=== PATIENT | male | born 1990 | race American Indian/Alaskan Native ===

== ENCOUNTER 2018-12-31 16:49 | Emergency (ER) | payer OTHER ==
[2018-12-31 17:17] VITALS: BP 134/78
--- NOTE | 2018-12-31 17:23 | Emergency Department Report ---
Blank Doc - Documentation Documentation: This is a 28-year-old male that presents with sore throat. This initial assessment/diagnostic orders/clinical plan/treatment(s) is/are subject to change based on patient's health status, clinical progression and re- assessment by fellow clinical providers in the ED. Further treatment and workup at subsequent clinical providers discretion. Patient/guardians urged not to elope from the ED as their condition may be serious if not clinically assessed and managed. Initial orders include: 1- Patient sent to [facility] for further evaluation and treatment 2- strep swab
[2018-12-31] MEDS ORDERED: TYLENOL ONE (19:24)
[2018-12-31] MEDS ORDERED: LIDOCAINE VISCOUS 2% PO ONE (19:24)
[2018-12-31] MEDS ORDERED: TYLENOL PO ONE (19:24)
[2018-12-31] MEDS ORDERED: LIDOCAINE VISCOUS 2% ONE (19:24)
[2018-12-31] MEDS ORDERED: BICILLIN L-A IM ONE (20:06)
[2018-12-31] MEDS ORDERED: DELTASONE PO ONE (20:07)
[2018-12-31] MEDS ORDERED: TORADOL IM ONE (20:07)
--- NOTE | 2018-12-31 20:15 | Emergency Department Report ---
ED ENT HPI - General Chief complaint: Sore Throat Stated complaint: STREP THROAT Time Seen by Provider: 12/31/18 17:21 Source: patient Mode of arrival: Ambulatory Limitations: No Limitations - History of Present Illness Initial comments: Patient is a 28-year-old -[place]ish male with history of recurrent streptococcal pharyngitis presents to the ED with complaint of acute onset persistent severe sore throat with discharge her for the last 2 days. Patient states that swallowing anything makes the pain worse. Patient also complains of persistent drooling since the onset of the symptoms. Patient denies fever, chills, nausea, vomiting, diarrhea, abdominal pain, nasal and sinus congestion, cough, or shortness of breath. Patient states that no one else at home has had similar symptoms. MD complaint: sore throat, difficulty swallowing -: Sudden, days(s) (2) Location: throat Severity: severe Severity scale (0 -10): 7 Quality: burning, aching, sharp Consistency: constant Improves with: none Worsens with: swallowing, eating Associated Symptoms: pain with swallowing, sore throat. denies: fever, cough, gum swelling, toothache, rhinorrhea - Related Data Previous Rx's Medication Instructions Recorded Last Taken Type Ibuprofen [Motrin] 600 mg PO Q8H PRN #20 tablet 12/31/18 Unknown Rx Lidocaine Viscous 2% 10 ml MM Q4H PRN #120 ml 12/31/18 Unknown Rx Ondansetron [Zofran Odt] 4 mg PO Q8HR #15 tab.rapdis 12/31/18 Unknown Rx methylPREDNISolone [Medrol] 4 mg PO DAILY #21 tab.ds.pk 12/31/18 Unknown Rx Allergies Allergy/AdvReac Type Severity Reaction Status Date / Time No Known Allergies Allergy Unverified 12/31/18 17:17 ED Dental HPI - General Chief complaint: Sore Throat Stated complaint: STREP THROAT Time Seen by Provider: 12/31/18 17:21 Source: patient Mode of arrival: Ambulatory Limitations: No Limitations - History of Present Illness Initial comments: Patient is a 28-year-old -Swedish male with history of recurrent streptococcal pharyngitis presents to the ED with complaint of acute onset persistent severe sore throat with discharge her for the last 2 days. Patient states that swallowing anything makes the pain worse. Patient also complains of persistent drooling since the onset of the symptoms. Patient denies fever, chills, nausea, vomiting, diarrhea, abdominal pain, nasal and sinus congestion, cough, or shortness of breath. Patient states that no one else at home has had similar symptoms. MD complaint: sore throat, difficulty swallowing -: Sudden, days(s) (2) 1 - Erythematous tonsils with gross drooling; no peritonsillar swelling and trismus Severity: severe Quality: burning, aching, sharp Consistency: constant Improves with: none Worsens with: swallowing, eating Dental Associated Symptons: Yes: Sore Throat - Related Data Previous Rx's Medication Instructions Recorded Last Taken Type Ibuprofen [Motrin] 600 mg PO Q8H PRN #20 tablet 12/31/18 Unknown Rx Lidocaine Viscous 2% 10 ml MM Q4H PRN #120 ml 12/31/18 Unknown Rx Ondansetron [Zofran Odt] 4 mg PO Q8HR #15 tab.rapdis 12/31/18 Unknown Rx methylPREDNISolone [Medrol] 4 mg PO DAILY #21 tab.ds.pk 12/31/18 Unknown Rx Allergies Allergy/AdvReac Type Severity Reaction Status Date / Time No Known Allergies Allergy Unverified 12/31/18 17:17 ED Review of Systems ROS: Stated complaint: STREP THROAT Other details as noted in HPI Comment: All other systems reviewed and negative Constitutional: no symptoms reported, see HPI. denies: chills, diaphoresis, fever, malaise, weakness Eyes: as per HPI. denies: eye pain, vision change ENT: as per HPI, throat pain, congestion. denies: ear pain, dental pain, hearing loss, epistaxis Respiratory: no symptoms reported, see HPI. denies: cough, shortness of breath, SOB with exertion, SOB at rest, wheezing Cardiovascular: as per HPI. denies: chest pain, palpitations, dyspnea on exertion, edema, paroxysmal nocturnal dyspnea Endocrine: no symptoms reported, see HPI. denies: excessive sweating, flushing, intolerance to cold, intolerance to heat, increased thirst, increased urine, unexplained weight gain Gastrointestinal: as per HPI. denies: abdominal pain, nausea, vomiting, constipation, hematemesis Genitourinary: as per HPI. denies: urgency, dysuria, hematuria, discharge Musculoskeletal: as per HPI. denies: back pain, joint swelling, arthralgia Skin: as per HPI. denies: rash, change in color, change in hair/nails Neurological: as per HPI. denies: headache, paresthesias, abnormal gait, vertigo Psychiatric: as per HPI. denies: anxiety, auditory hallucinations, visual hallucinations Hematological/Lymphatic: as per HPI ED Past Medical Hx - Social History Smoking Status: Current Every Day Smoker Substance Use Type: None - Medications Home Medications: Home Medications Medication Instructions Recorded Confirmed Last Taken Type Ibuprofen [Motrin] 600 mg PO Q8H PRN #20 tablet 12/31/18 Unknown Rx Lidocaine Viscous 2% 10 ml MM Q4H PRN #120 ml 12/31/18 Unknown Rx Ondansetron [Zofran Odt] 4 mg PO Q8HR #15 tab.rapdis 12/31/18 Unknown Rx methylPREDNISolone [Medrol] 4 mg PO DAILY #21 tab.ds.pk 12/31/18 Unknown Rx ED Physical Exam - General Limitations: No Limitations General appearance: alert, in no apparent distress - Head Head exam: Present: atraumatic, normocephalic, normal inspection - Eye Eye exam: Present: normal appearance, PERRL, EOMI Pupils: Present: normal accommodation - ENT ENT exam: Present: mucous membranes moist, TM's normal bilaterally, normal external ear exam, other (Erythematous tonsils with drooling, no sign of peritonsillar abscess, no trismus) - Neck Neck exam: Present: normal inspection, lymphadenopathy. Absent: tenderness, full ROM - Respiratory Respiratory exam: Present: normal lung sounds bilaterally. Absent: respiratory distress, wheezes, rales, rhonchi, chest wall tenderness, accessory muscle use, decreased breath sounds, prolonged expiratory - Cardiovascular Cardiovascular Exam: Present: regular rate, normal rhythm, normal heart sounds. Absent: bradycardia, tachycardia - GI/Abdominal GI/Abdominal exam: Present: soft. Absent: distended, tenderness, guarding, rebound, hyperactive bowel sounds, hypoactive bowel sounds, organomegaly - Rectal Rectal exam: Present: deferred - Extremities Exam Extremities exam: Present: normal inspection. Absent: full ROM, tenderness - Back Exam Back exam: Present: normal inspection, full ROM. Absent: tenderness, CVA tenderness (R), CVA tenderness (L), muscle spasm, paraspinal tenderness, vertebral tenderness - Neurological Exam Neurological exam: Present: alert, oriented X3, CN II-XII intact, normal gait, reflexes normal - Psychiatric Psychiatric exam: Present: normal affect - Skin Skin exam: Present: warm, dry, intact ED Course Vital Signs 12/31/18 17:16 Temperature 98.8 F Pulse Rate 97 H Respiratory 22 Rate Blood Pressure 134/78 O2 Sat by Pulse 98 Oximetry ED Medical Decision Making - Medical Decision Making Patient is alert and oriented 3 and is not in distress with normal vital signs. Patient was treated for pain in the ED and also received Bicillin LA 1.2 million units intramuscular injection. On reevaluation, patient and is moderately controlled, and the patient will discharged home on pain medications and steroid Dosepak, and advised to follow up with his primary care physician in 5-7 days for reevaluation. Patient also advised to return to the ED immediately if symptoms get worse. - Differential Diagnosis acute strep pharyngitis, acute bronchitis Critical care attestation.: If time is entered above; I have spent that time in minutes in the direct care of this critically ill patient, excluding procedure time. ED Disposition Clinical Impression: Acute pharyngitis Qualifiers: Pharyngitis/tonsillitis etiology: other specified organisms Qualified Code(s): J02.8 - Acute pharyngitis due to other specified organisms Disposition: DC-01 TO HOME OR SELFCARE Is pt being admited?: No Does the pt Need Aspirin: No Condition: Stable Instructions: Strep Throat (ED), Pharyngitis (ED) Additional Instructions: Take medications with food, drink plenty of fluids and follow up with your [facility] physician at sunrise in 5-7 days. Return to the ED immediately if symptoms get worse. Prescriptions: Lidocaine Viscous 2% 10 ml MM Q4H PRN #120 ml PRN Reason: Pain , Severe (7-10) methylPREDNISolone [Medrol] 4 mg PO DAILY #21 tab.ds.pk Ibuprofen [Motrin] 600 mg PO Q8H PRN #20 tablet PRN Reason: Pain Ondansetron [Zofran Odt] 4 mg PO Q8HR #15 tab.rapdis Referrals: [facility] [Outside] - 3-5 Days Forms: Work/School Release Form(ED) Time of Disposition: 20:30 Print Language: [place]
== END 2018-12-31 20:50 | disposition home or self-care (01) ==
LOC: ED 16:49
DX: J02.9 Acute pharyngitis, unspecified (principal); F17.200 Nicotine dependence, unspecified, uncomplicated
CPT/HCPCS: 87116; 87430; 96372; 99283; J0561; J1885; J7512